=== PATIENT | female | born 1955 | race Caucasian/White ===

== ENCOUNTER 2022-01-02 20:20 | Emergency (ER) | payer MEDICARE, BC ==
[2022-01-02] MEDS ORDERED: Ibuprofen 600 MG Tab PO ONE (20:52)
== END 2022-01-02 21:55 | disposition home or self-care (01) ==
LOC: JD.ED 20:20
DX: S93.401A Sprain of unspecified ligament of right ankle, initial encounter (principal); E78.00 Pure hypercholesterolemia, unspecified; J44.9 Chronic obstructive pulmonary disease, unspecified; E11.9 Type 2 diabetes mellitus without complications; Z87.891 Personal history of nicotine dependence; Z91.030 Bee allergy status; Z88.8 Allergy status to other drugs, medicaments and biological substances; Z79.899 Other long term (current) drug therapy; Z79.84 Long term (current) use of oral hypoglycemic drugs; X50.1XXA Overexertion from prolonged static or awkward postures, initial encounter
CPT/HCPCS: 29515; 73610; 99283; A9270

== ENCOUNTER 2025-06-17 07:15 | Day surgery (SDC) | payer MEDICARE, BC ==
[2025-06-17] MEDS: Cefuroxime 10 MG/ML SYRINGE EYELF SCH (07:08)
[2025-06-17] MEDS: Lidocaine 1% PF 2 ML SDV INJECT SCH (07:08)
[2025-06-17] MEDS: Tetracaine HCl/PF 0.5% 4 ML Bottle EYEBOTH SCH (07:08)
[2025-06-17] MEDS: Pilocarpine 4% Ophth Soln 15 ML Bot EYELF SCH (07:09)
[2025-06-17] MEDS: Polymyxin B/Trimethoprim 10 ML Bottle EYELF SCH (07:09)
[2025-06-17] MEDS: Tropicamide 1% Ophth Soln 3 ML Bottle EYELF SCH (07:52)
[2025-06-17] MEDS ORDERED: fentaNYL 100 MCG/2 ML SDV ONE (08:18)
[2025-06-17] MEDS ORDERED: Midazolam 1 MG/ML 2 ML SDV ONE (08:18)
== END 2025-06-17 08:57 ==
LOC: JD.SDS 07:15
PROVIDERS: ATTEND Ophthalmology
DX: E11.36 Type 2 diabetes mellitus with diabetic cataract (principal); H25.813 Combined forms of age-related cataract, bilateral; I10 Essential (primary) hypertension; Z88.8 Allergy status to other drugs, medicaments and biological substances; Z91.030 Bee allergy status; Z79.899 Other long term (current) drug therapy
CPT/HCPCS: A9270-GY; J0697; J2250; J3010; J3490

== ENCOUNTER 2025-07-15 12:00 | Day surgery (SDC) | payer MEDICARE, BC ==
[~2025-07-15 12:00] MED LIST: Pilocarpine 4% Ophth Soln 15 ML Bot EYERT SCH
[2025-07-15] MEDS: Polymyxin B/Trimethoprim 10 ML Bottle EYERT SCH (12:15)
[2025-07-15] MEDS: Tropicamide 1% Ophth Soln 3 ML Bottle EYERT SCH (12:23)
[2025-07-15] MEDS: Tetracaine HCl/PF 0.5% 4 ML Bottle EYEBOTH SCH (13:14)
[2025-07-15] MEDS ORDERED: Midazolam 1 MG/ML 2 ML SDV ONE (13:22)
[2025-07-15] MEDS: Lidocaine 1% PF 2 ML SDV INJECT SCH (13:31)
[2025-07-15] MEDS: Cefuroxime 10 MG/ML SYRINGE EYERT SCH (13:42)
== END 2025-07-15 13:52 | disposition home or self-care (01) ==
LOC: JD.SDS 12:00
PROVIDERS: ATTEND Ophthalmology
DX: E11.36 Type 2 diabetes mellitus with diabetic cataract (principal); H25.811 Combined forms of age-related cataract, right eye; I10 Essential (primary) hypertension; J44.89 Other specified chronic obstructive pulmonary disease; Z88.8 Allergy status to other drugs, medicaments and biological substances; Z91.030 Bee allergy status; Z96.1 Presence of intraocular lens; Z79.899 Other long term (current) drug therapy
CPT/HCPCS: A9270-GY; J0697; J2250; J3490